=== PATIENT | female | born 1990 | race Caucasian/White ===

== ENCOUNTER 2019-11-26 10:53 | Inpatient (IN) | payer OTHER ==
[~2019-11-26] VITALS: Ht 157.4 cm; Wt 64.4 kg
--- NOTE | 2019-11-26 12:50 | NUR ---
PATIENT MEETS [facility]. CINA =[id number]. PATIENT IS GOING TO FOLLOW UP WITH [facility] FOR MEDICATED-ASSISTED TREATMENT FOR HER AFTERCARE PLAN. CHUY DOWNEY B.A. WORKPLACE RELATIONS ADVISER
[2019-11-26 13:00] VITALS: BP 112/80
--- NOTE | 2019-11-26 13:00 | NUR ---
The assessment has been completed. TEE ESTRADA Time: 1300 A 29 year old FEMALE admitted to under services of GEORGIE ROUSE DO. Pt. arrived via ambulatory from [place]. Chief complaint: OPIATE DEPENDENCY AND WITHDRAWAL. LAST USED HEROIN ABOUT 0.5G LAST NIGHT AROUND MIDNIGHT. STATES SHE HAS BEEN ABUSING HEROIN FOR ABOUT 7 YEARS.. TEE ESTRADA
--- NOTE | 2019-11-26 13:43 | NUR ---
PER JILLIAN DASH PT DOES NOT NEED IV ACCESS AT THIS TIME.
[2019-11-26 13:44] LABS: BASO # 0.1 10*3/uL (0.0-0.1); BASO % 0.4 % (0.0-1.0); EOS # 0.7 10*3/uL (0.0-0.4); EOS % 4.9 % (1.0-4.0); HEMATOCRIT 44.7 % (37.0-47.0); LYMPH # 2.6 10*3/uL (1.3-4.4); LYMPH % 18.7 % (27.0-41.0); MEAN CORPUSCULAR HGB 29.7 pg (27.0-31.0); MEAN CORPUSCULAR HGB CONC 32.7 g/dl (33.0-37.0); MEAN PLATELET VOLUME 9.5 fl (9.6-12.3); MONO # 0.9 10*3/uL (0.1-1.0); MONO % 6.5 % (3.0-9.0); NEUT # 9.6 10*3/uL (2.3-7.9); NEUT % 69.2 % (47.0-73.0); PLATELET COUNT AUTOMATED 275 10*3/uL (130-400); RED BLOOD COUNT 4.91 10*6/uL (4.10-5.10); RED CELL DISTRI WIDTH 13.6 % (0-14.5); WHITE BLOOD COUNT 13.9 10*3/uL (4.8-10.8)
[2019-11-26 13:51] LABS: BILIRUBIN Negative (Negative); BLOOD Negative (Negative); CLARITY Clear (Clear); COLOR Yellow (Yellow); GLUCOSE Negative (Negative); KETONE Negative (Negative); LEUKO ESTERASE Negative (Negative); NITRITE Negative (Negative); PH 6.5 (4.5-8.0); UROBILINOGEN 0.2 E.U./dl (0.0-1.0)
--- NOTE | 2019-11-26 13:54 | NUR ---
PT VISIBLY ANXIOUS.HAND TREMORS NOTED. C/O ABD PAIN,DIARRHEA,RESTLESS LEGS AND MUSCLE ACHES. MEDICATED PER ORDER. WILL MONITOR FOR RELIEF. RESPS EASY AND NON LABORED. CALL LIGHT WITHIN REACH.
[2019-11-26 13:59] LABS: ALBUMIN 3.6 gm/dl (3.1-4.5); ALKALINE PHOSPHATASE 73 U/L (45-117); BUN 16 mg/dl (7-24); CHLORIDE 109 mmol/L (98-107); CREATININE 0.78 mg/dL (0.55-1.02); POTASSIUM 3.9 mmol/L (3.5-5.1); SGOT/AST 15 IU/L (3-35); SGPT/ALT 20 U/L (12-78); SODIUM 137 mmol/L (136-145); TOTAL PROTEIN 7.3 gm/dL (6.4-8.2)
[2019-11-26 14:00] LABS: ETHYL ALCOHOL < 3.0 mg/dl (<3)
[2019-11-26 14:03] LABS: URINE AMPHETAMINES < 1000 (1000ng/ml); URINE BARBITURATES < 200 (200ng/ml); URINE BENZODIAZEPINES < 200 (200ng/ml); URINE CANNABINOIDS (THC) < 50 (50ng/ml); URINE COCAINE < 300 (300ng/ml); URINE METHADONE < 300 (300ng/ml); URINE OPIATES < 300 (300ng/ml)
[2019-11-26 14:17] LABS: EPITHELIAL CELLS 0-2; WBC 0-2 wbc/hpf (0-5)
[2019-11-26 14:19] LABS: INTERNATIONAL NORM RATIO 0.9 (2.0-3.5)
[2019-11-26 14:28] LABS: URINE PHENCYCLIDINE < 25 (25ng/ml)
--- NOTE | 2019-11-26 14:41 | NUR ---
PT STATING SHE DOES NOT WANT TO TAKE SCHEDULED DOSE OF SUBUTEX. JILLIAN DASH NOTIFIED, STATES TO LET [facility] KNOW.
--- NOTE | 2019-11-26 14:54 | NUR ---
PT RESTING IN ROOM .RESPS EASY AND NON LABORED. NO S/S OF DISTRESS NOTED. WILL CONTINUE TO MONITOR. CALL LIGHT WITHIN REACH.
[2019-11-26 16:00] VITALS: BP 90/53
[2019-11-26 20:00] VITALS: BP 90/50
--- NOTE | 2019-11-26 23:55 | NUR ---
PATIENT SLEEPING, WOKEN UP FOR SCHEDULED DOSE OF LIBRIUM AND SUBUTEX. PATIENT REFUSING SUBUTEX AT THIS TIME. STATES SHE WANTS TO WAIT. VOICES NO COMPLAINTS/NEEDS. WILL CONTINUE TO MONITOR.
[2019-11-27] VITALS: BP 93/57
--- NOTE | 2019-11-27 04:00 | NUR ---
PATIENT SLEEPING. NO SIGNS OF DISTRESS. RESPIRATIONS EASY, NON LABORED. BED IN LOWEST POSITION,CALL LIGHT WITHIN REACH. WILL CONTINUE TO MONITOR.
[2019-11-27 08:00] VITALS: BP 91/50
--- NOTE | 2019-11-27 09:39 | NUR ---
PT RESTING QUIETLY . NO DISTRESS NOTED. WILL MONITOR
[2019-11-27 12:00] VITALS: BP 97/47
--- NOTE | 2019-11-27 15:18 | NUR ---
[place] STAFF IN TO SEE PATIENT. PATIENT'S AFTERCARE REMAINS THE SAME. PATIENT WILL BE FOLLOWING UP WITH [facility]. CHUY DOWNEY B.A. AUDIO/VISUAL OPERATOR
[2019-11-27 16:00] VITALS: BP 106/52
--- NOTE | 2019-11-27 20:00 | NUR ---
PATIENT VERBALIZING WISHES TO LEAVE AGAINST MEDICAL ADVICE. CONTACTED AND SHIFT DIRECTOR AWARE.
== END 2019-11-27 20:00 | disposition left against medical advice (07) | DRG 770 ==
LOC: 5E 10:53
PROVIDERS: Registered Nurse; ADMIT Internal Medicine; ATTEND Internal Medicine
DX: F11.23 Opioid dependence with withdrawal (principal); G25.81 Restless legs syndrome; F17.210 Nicotine dependence, cigarettes, uncomplicated; D72.829 Elevated white blood cell count, unspecified; E87.8 Other disorders of electrolyte and fluid balance, not elsewhere classified; E44.0 Moderate protein-calorie malnutrition; Z53.29 Procedure and treatment not carried out because of patient's decision for other reasons; Z79.899 Other long term (current) drug therapy; Z68.25 Body mass index [BMI] 25.0-25.9, adult

== ENCOUNTER → 2023-05-17 | Outpatient (CLI) | payer OTHER ==
[2023-05-17 10:53] LABS: BASO # 0.1 10*3/uL (0.0-0.1); BASO % 0.6 % (0.0-1.0); EOS # 0.3 10*3/uL (0.0-0.4); EOS % 2.6 % (1.0-4.0); HEMATOCRIT 46.6 % (37.0-47.0); LYMPH # 2.7 10*3/uL (1.3-4.4); LYMPH % 25.2 % (27.0-41.0); MEAN CELL VOLUME 93.2 fl (81.0-99.0); MEAN CORPUSCULAR HGB CONC 32.2 g/dl (33.0-37.0); MONO # 0.7 10*3/uL (0.1-1.0); MONO % 6.1 % (3.0-9.0); NEUT % 65.3 % (47.0-73.0); PLATELET COUNT AUTOMATED 278 10*3/uL (130-400); RED CELL DISTRI WIDTH 14.5 % (0-14.5); WHITE BLOOD COUNT 10.7 10*3/uL (4.8-10.8)
[2023-05-17 11:44] LABS: ALKALINE PHOSPHATASE 59 U/L (46-116); BUN 12 mg/dl (9-23); CHLORIDE 106 mmol/L (98-107); CHOLESTEROL 244 mg/dL (<200); LDL CHOLESTEROL 165 mg/dL (9-159); SGPT/ALT 18 U/L (5-49); TOTAL PROTEIN 7.8 gm/dL (6.0-8.0); TRIGLYCERIDES 102 mg/dl (<150)
[2023-05-18 05:07] LABS: HBSAG Negative (Negative); HEP B CORE AB, IGM Negative (Negative); HEPATITIS C ANTIBODY Non Reactive (Non Reactive)
== END | disposition home or self-care (01) ==
LOC: LAB 09:57
PROVIDERS: ATTEND Registered Nurse
DX: Z11.59 Encounter for screening for other viral diseases (principal); F19.20 Other psychoactive substance dependence, uncomplicated; Z13.1 Encounter for screening for diabetes mellitus; Z91.411 Personal history of adult psychological abuse